=== PATIENT | female | born 1975 | race Caucasian/White ===

== ENCOUNTER 2019-06-07 08:03 | Outpatient (CLI) | payer BC ==
[2019-06-07] MEDS ORDERED: Gadobenate Dimeglumine 529 MG/1 ML (20ML VIAL) ONE (09:00)
--- NOTE | 2019-06-07 09:57 | MRI ---
Exam: Brain MRI with and without contrast HISTORY: Colloid cyst. COMPARISON: None. Previous MRI was 7 years ago. FINDINGS: Gradient echo sequence: No hemorrhage Calvarium: Appropriate T1 marrow signal intensity Midline brain parenchyma: Midline brain parenchyma is unremarkable. 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 Cerebrum:No parenchymal mass, mass effect or midline shift. Brain volume is age-appropriate. Cortical beatty-white matter differentiation observed. No significant T2 or FLAIR white matter hyperintensities Ventricles: No evidence of hydrocephalus. At the level of foramen Beanvides, there is a intrinsic T1 hyp erintense, T2 and FLAIR hypointense lesion measuring 0 point cm, compatible with a colloid cyst. No associated hydrocephalus. Sinuses and mastoid air cells: Mild mucosal thickening involving the ethmoid air cells. Bilateral max illary sinus mucosal thickening along with a air-fluid level in the right maxillary sinus. Adequate mastoid air cell aeration. Diffusion: Central arterial flow is maintained. Absent restricted diffusion. Postcontrast images: No pathologic enhancement of the brain parenchyma. IMPRESSION: 1. 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 No associated hydrocephalus.
--- NOTE | 2019-06-07 10:08 | CT ---
CT CERVICAL SPINE WITHOUT CONTRAST: INDICATIONS: C-spine surgery in 2013. Neck pain. COMPARISON: Prior CT cervical spine from 09/21/2013. TECHNIQUE: Axial tomograms obtained with multiplanar reconstruction. FINDINGS: Postoperative changes are present since the prior exam of 2013. Fusion procedures noted with anterior plate and screws transfixing C5, C6 and C7. Interbody disk implants are present at these levels and there is interbody fusion at these levels. The vertebral bodies maintain height. Disk spaces at C2-C3, C3-C4 and C4-C5 are preserved. There are degenerative changes with anterior osteophytes and posterior spondylosis. There is mild loss of disk space at C7-T1, however this appears stable from the prior study. C2-C3: There is a mild diffuse disk bulge effacing the anterior subarachnoid space. C3-C4: Disk bulge and spondylosis efface the anterior subarachnoid space and abut the anterior cord. The foramina are patent. C4-C5: Mild disk bulge and spondylosis abut the anterior cord. Asymmetric bulge to the left. Mild lef t foraminal narrowing. C5-C6: Fusion changes. Posterior bony spondylosis efface the anterior subarachnoid space. No signific ant cord impingement or compression. The foramina are patent. C6-C7: Fusion changes. Posterior bony spondylosis efface the anterior subarachnoid space. No signific ant cord impingement or compression. The foramina appear patent. C7-T1: Mild disk bulge and spondylosis. The foramina appear patent. IMPRESSION: 1. Postoperative fusion changes from C5 through C7, as described above. 2. Mild disk bulge and spondylosis noted at multiple levels, as detailed above. POS: [facility]
--- NOTE | 2019-06-07 10:53 | RAD ---
XR Cervical Spine 4 View Min HISTORY: Neck pain x3 months. History of previous surgery . COMPARISON: 09/07/2013 study. FINDINGS: Patient is undergone anterior cervical fusion with placement of a plate and screws extendin g from C3 5 to C7. Markers are the disc implants are within the confines of the disc levels. There is no abnormal motion seen on flexion or extension.. IMPRESSION: Stable postop change.
--- NOTE | 2019-06-07 11:05 | MRI ---
Exam: MRI CERVICAL SPINE WITH AND WITHOUT CONTRAST: COMPARISON: None. CORRELATION: CT cervical spine 06/07/2019. FINDINGS: Appropriate T1 marrow signal intensity of the cervical vertebra. Cervical spine vertebral body height is maintained. No fracture. There is straightening of normal cervical lordosis. No significant STIR hyperintensity to suggest vertebral body edema or ligamentous injury. Limited evaluation of the cervical spine from C5 through C7 due to metallic susceptibly artifact from fusion hardware. Postcontrast images do not demonstrate abnormal enhancement with regards to the vertebral bodies. The re is no abnormal enhancement with regards to the visualized brain parenchyma, cervicomedullary junction, cervical cord and the upper thoracic cord. The visualized brain parenchyma, cervicomedullar y junction, cervical cord and the upper thoracic cord have a normal size and signal intensity Sagittal images demonstrate posterior disc abnormality at T1-T2, T2-T3 and T3-T4. There may be mass e ffect upon the thoracic cord at T3-T4. Incomplete evaluation. Visualized soft tissue neck structures are unremarkable. C2-C3: No significant central canal stenosis or significant neural foraminal narrowing. C3-C4: Broad-based disc osteophyte complex nearly effaces the subarachnoid space. Mild deformity of t he cervical cord, without cord hyperintensity. Mild central canal stenosis. Mild bilateral foraminal narrowing due to uncovertebral hypertrophy. C4-C5: Broad-based disc osteophyte complex effaces subarachnoid space. There is mass effect and defor mity of the cervical cord. Moderate central canal stenosis. No cord hyperintensity. Right neural foramen is patent. Moderate left neural foraminal narrowing due to uncovertebral hypertrophy. C5-C6: There is a disc prosthesis. Broad-based osteophyte ridge without significant central canal heather nosis or significant neural foraminal narrowing. C6-C7: Disc prosthesis. No significant central canal stenosis or significant neural foraminal narrowi ng. C7-T1: No significant central canal stenosis or significant neural foraminal narrowing. IMPRESSION: 1. Anterior cervical fusion from C5 through C7. Associated metallic susceptibly artifact. 2. Degenerative changes at C3-C4, and C4-C5. Moderate central canal stenosis at C4-C5. 3. Varying degrees of neural foraminal stenosis as detailed above. Transcribed Date/Time: 06/07/2019 11:39 AM
== END 2019-06-07 08:04 | disposition home or self-care (01) ==
LOC: SCSCT 08:03
PROVIDERS: ATTEND Physician Assistant Surgical
DX: M47.22 Other spondylosis with radiculopathy, cervical region (principal); M54.2 Cervicalgia; Q04.6 Congenital cerebral cysts; M50.11 Cervical disc disorder with radiculopathy, high cervical region; M48.02 Spinal stenosis, cervical region; Z98.1 Arthrodesis status
CPT/HCPCS: 70553; 72050; 72125; 72156; A9577

== ENCOUNTER 2019-08-08 13:31 | Outpatient (CLI) | payer BC ==
--- NOTE | 2019-08-08 14:25 | MMO ---
Left Breast MAMMO Unilat Diag DDI LT+ANA LAURA. CLINICAL HISTORY: Patient is 43 years old and is seen for additional evaluation requested from prior study. The patient has no family history of breast cancer. The patient has no personal history of cancer. VIEWS: The views performed were: left craniocaudal spot compression with tomosynthesis; left mediolateral oblique spot compression with tomosynthesis; and left mediolateral with tomosynthesis. FILMS COMPARED: The present examination has been compared to prior imaging studies performed at [facility] on 08/01/2019, and at [facility] on 10/03/2015. This study has been interpreted with the assistance of computer-aided detection. MAMMOGRAM FINDINGS: There are scattered fibroglandular densities. The asymmetry seen at screening mammography does not persist at additional imaging, compatible with superimposed tissue. There are no suspicious masses, suspicious calcifications, or new areas of architectural distortion. IMPRESSION: THERE IS NO MAMMOGRAPHIC EVIDENCE OF MALIGNANCY. A ROUTINE FOLLOW-UP MAMMOGRAM IN 1 YEAR IS RECOMMENDED. THE RESULTS OF THIS EXAM WERE SENT TO THE PATIENT. ACR BI-RADS Category 2 - Benign finding MAMMOGRAPHY NOTE: 1. A negative mammogram report should not delay a biopsy if a dominant of clinically suspicious mass is present. 2. Approximately 10% to 15% of breast cancers are not detected by mammography. 3. Adenosis and dense breasts may obscure an underlying neoplasm. Reported by: MARGARITO RANDALL MD Electonically Signed: [id number]
== END 2019-08-08 13:32 | disposition home or self-care (01) ==
LOC: BICMAMMO 13:31
PROVIDERS: ATTEND Obstetrics & Gynecology
DX: R92.8 Other abnormal and inconclusive findings on diagnostic imaging of breast (principal)
CPT/HCPCS: G0279

== ENCOUNTER 2021-04-18 15:21 | Outpatient (CLI) | payer BC | END 2021-04-18 15:22 | disposition home or self-care (01) | LOC: SCSMRI 15:21 | PROVIDERS: ATTEND Surgery | DX: M50.11 Cervical disc disorder with radiculopathy, high cervical region (principal); M47.816 Spondylosis without myelopathy or radiculopathy, lumbar region; M48.02 Spinal stenosis, cervical region; Z98.890 Other specified postprocedural states | CPT/HCPCS: 72050; 72141 ==

== ENCOUNTER 2024-06-13 13:25 | Outpatient (CLI) | payer OTHER | END 2024-06-13 13:26 | disposition home or self-care (01) | LOC: MRI 13:25 | PROVIDERS: ATTEND Family Medicine | DX: M54.12 Radiculopathy, cervical region (principal); M48.02 Spinal stenosis, cervical region; M40.50 Lordosis, unspecified, site unspecified; Z98.890 Other specified postprocedural states | CPT/HCPCS: 72141 ==